=== PATIENT | female | born 2000 | race Caucasian/White ===

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

== ENCOUNTER 2020-04-29 12:45 | Outpatient (CLI) | payer MEDICAID, SELFPAY ==
[2020-05-02 05:03] LABS: Patient Race White; SARS-CoV-2 RNA Undetected (Undetected); SARS-CoV-2 Specimen Source Nasopharynx
== END 2020-04-29 13:05 ==
PROVIDERS: PCP Nurse Practitioner Pediatrics; Visit Provider Pediatrics
DX: Z11.59 Encounter for screening for other viral diseases (principal)
CPT/HCPCS: U0003

== ENCOUNTER 2020-06-28 15:51 | Outpatient (REF) | payer MEDICAID, SELFPAY ==
[2020-07-05 09:46] LABS: COVID-19 RT-PCR UVMMC Result Negative (Negative)
== END 2020-06-28 16:11 ==
LOC: LBN 15:51
PROVIDERS: PCP Nurse Practitioner Pediatrics; Visit Provider Pediatrics
DX: Z11.59 Encounter for screening for other viral diseases (principal)
CPT/HCPCS: U0003

== ENCOUNTER 2020-11-08 09:24 | Outpatient (CLI) | payer MEDICAID, SELFPAY ==
[2020-11-08 09:44] LABS: Abs Immature Grans 0.02 10^3/uL (0.0-0.06); Absolute Basophil Count 0.04 10^3/uL (0.0-0.2); Absolute Lymphocyte Count 2.89 10^3/uL (1.2-3.4); Absolute Neutrophil Count 3.65 10^3/uL (1.2-6.7); Basophils % 0.6; Eosinophils % 1.4; HCT 40.6 % (36.0-46.0); HGB 13.7 g/dL (11.2-15.7); Immature Grans % 0.3; Lymphocytes % 40.1; MCH 29.3 pg (27.0-33.0); MCHC 33.7 % (32.0-36.0); MCV 86.9 fL (80-95); MPV 11.2 fL (8.0-11.0); Monocytes % 6.9; Neutrophils % 50.7; Nucleated RBC 0 %; Platelet Count 202 10^3/uL (130-400); RBC 4.67 10^6/uL (3.93-5.22); RDW 11.3 % (11.7-14.6); RDW-SD 36.1 fL
[2020-11-08 11:04] LABS: ALT 18 U/L (14-59); AST < 5 U/L (15-37); Albumin 4.3 g/dL (3.4-5.0); Alkaline Phosphatase 86 U/L (46-116); Anion Gap 9.1 mmol/L (3-11); BUN 10 mg/dL (7-18); Bilirubin, Total 0.2 mg/dL (0.2-1.0); CO2 26.9 mmol/L (21.0-32.0); CREATININE 0.6 mg/dL (0.55-1.02); Calcium 9.6 mg/dL (8.5-10.1); Chloride 107 mmol/L (98-107); Glucose 90 mg/dL (74-106); Potassium 3.9 mmol/L (3.5-5.1); Sodium 143 mmol/L (136-145)
== END 2020-11-08 09:25 | disposition home or self-care (01) ==
LOC: LBO 09:27
PROVIDERS: PCP Nurse Practitioner Pediatrics; Visit Provider Nurse Practitioner Family
DX: R31.9 Hematuria, unspecified (principal); M54.5 Low back pain
CPT/HCPCS: 36415; 80053; 85025

== ENCOUNTER 2020-11-08 13:56 | Outpatient (REF) | payer MEDICAID, SELFPAY ==
[2020-11-08 15:56] LABS: Epithelial Cells Many HPF (Negative)
[2020-11-08 15:57] LABS: C & S Indicated? No; Crystals Many Amorphous HPF (Negative)
== END 2020-11-08 13:57 | disposition home or self-care (01) ==
LOC: LBN 13:56
PROVIDERS: PCP Nurse Practitioner Pediatrics; Visit Provider Nurse Practitioner Family
DX: R31.9 Hematuria, unspecified (principal)
CPT/HCPCS: 81015

== ENCOUNTER 2020-11-08 14:29 | Outpatient (CLI) | payer MEDICAID, SELFPAY ==
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
== END 2020-11-08 14:49 ==
PROVIDERS: PCP Nurse Practitioner Pediatrics; Visit Provider Nurse Practitioner Family
DX: R10.32 Left lower quadrant pain (principal); R31.9 Hematuria, unspecified
CPT/HCPCS: 76770

== ENCOUNTER 2020-11-18 12:03 | Outpatient (REF) | payer MEDICAID, SELFPAY ==
[2020-11-18 12:35] LABS: Bilirubin Negative (Negative); Blood Moderate (Negative); Clarity Cloudy (Clear); Glucose Negative (Negative); Ketones Negative (Negative); Leukocyte Esterase Negative (Negative); Nitrite Negative (Negative); Specific Gravity >= 1.030 (1.005-1.025); Urobilinogen 0.2 EU/dL (Up TO 0.2); pH 5.5 (5-8)
[2020-11-18 12:45] LABS: Bacteria Many HPF (Negative); C & S Indicated? Yes; Casts Negative LPF (Negative); Crystals Negative HPF (Negative); Epithelial Cells Few HPF (Negative); Mucus Trace (Negative); Other Cells Negative (Negative); WBC 0-2 HPF (0-5)
== END 2020-11-18 12:04 | disposition home or self-care (01) ==
LOC: LBN 12:03
PROVIDERS: PCP Nurse Practitioner Family; Visit Provider Nurse Practitioner Family
DX: R31.9 Hematuria, unspecified (principal)
CPT/HCPCS: 81003; 81015; 87086

== ENCOUNTER 2020-12-05 01:23 | Outpatient (CLI) | payer MEDICAID, SELFPAY ==
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
[2020-12-05] MEDS: Normal Saline - Diluent 50 ML VIAL IV ×2 (10:38)
[2020-12-05] MEDS: Omnipaque 350 MG/ML 100 ML BTL IJ (10:39)
== END 2020-12-05 01:43 ==
PROVIDERS: Visit Provider Urology
DX: M54.5 Low back pain (principal); R31.9 Hematuria, unspecified; V89.2XXA Person injured in unspecified motor-vehicle accident, traffic, initial encounter
CPT/HCPCS: 74178; J3490

== ENCOUNTER 2020-12-28 22:14 | Outpatient (REF) | payer MEDICAID, SELFPAY ==
[2020-12-29 15:29] LABS: Chlamydia Result Negative (Negative); GC Result Negative (Negative)
== END 2020-12-28 22:15 | disposition home or self-care (01) ==
LOC: LBN 22:14
PROVIDERS: Visit Provider Nurse Practitioner Women's Health
DX: N76.0 Acute vaginitis (principal); Z11.3 Encounter for screening for infections with a predominantly sexual mode of transmission
CPT/HCPCS: 87491; 87591; 87480; 87510; 87660

== ENCOUNTER 2021-02-16 12:27 | Outpatient (CLI) | payer MEDICAID, SELFPAY ==
--- NOTE | 2021-02-16 12:15 | RT.EKG_ITS ---
APPROVED REPORT Exam: Resting ECG Reason for Exam: chest tightness Patient Location: O HR:89 bpm ECG Measurements Heart Rate 89 AXIS ND 116 P -5 QRSd 74 QRS 69 QT 349 T 41 QTc 424 Conclusion Sinus rhythm...normal P axis, V-rate 60- 99
== END 2021-02-16 12:28 | disposition home or self-care (01) ==
LOC: DI.CM 12:28
PROVIDERS: Visit Provider Physician Assistant
DX: R07.89 Other chest pain (principal)
CPT/HCPCS: 93010

== ENCOUNTER 2021-02-16 14:47 | Outpatient (CLI) | payer MEDICAID, SELFPAY ==
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
== END 2021-02-16 15:07 ==
PROVIDERS: Visit Provider Physician Assistant
DX: R06.02 Shortness of breath (principal); R09.1 Pleurisy
CPT/HCPCS: 71046

== ENCOUNTER 2021-02-16 21:36 | Outpatient (REF) | payer MEDICAID, SELFPAY ==
[2021-02-16 22:38] LABS: D-Dimer 91 ng/mlFEU (<500)
== END 2021-02-16 21:37 | disposition home or self-care (01) ==
LOC: LBN 21:36
PROVIDERS: Visit Provider Physician Assistant
DX: R06.02 Shortness of breath (principal)
CPT/HCPCS: 85379

== ENCOUNTER 2021-07-20 11:09 | Outpatient (CLI) | payer MEDICAID, SELFPAY ==
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
== END 2021-07-20 11:29 ==
DX: M79.672 Pain in left foot (principal)
CPT/HCPCS: 73630

== ENCOUNTER 2021-09-28 02:47 | Outpatient (CLI) | payer MEDICAID, SELFPAY ==
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
== END 2021-09-28 03:07 ==
PROVIDERS: Visit Provider Student in an Organized Health Care Education/Training Program
DX: M79.672 Pain in left foot (principal); M65.871 Other synovitis and tenosynovitis, right ankle and foot; Q66.89 Other specified congenital deformities of feet; M25.572 Pain in left ankle and joints of left foot
CPT/HCPCS: 73718

== ENCOUNTER 2022-01-25 14:58 | Outpatient (REF) | payer MEDICAID, SELFPAY ==
--- NOTE | 2022-01-25 13:00 | PAPFT_PTH ---
PATIENT: Maria Isabel Hurd LOC: [facility] U#:[id number] AGE/SX: 21/F ROOM: RE01/25/[address]: MATI Land : 2000 BED: DIS: 01/25/2022 SPEC #: [id number] RECD: 01/25/22 17:53 STATUS: PRADIP SHETH #: [id number] ALFREDITO: 01/25/22 13:[address]: Rosanne Carney DEPT: [facility] Cytology RECD BY: Makeda Wilson ENTERED: 01/25/22 17:53 SP TYPE: PAPFT GABI DR: Roxann Booth APRN Tissues: 1 - CX/ENDOCX FOR PAP SMEARS Procedures: PAP THIN PREP/[facility] Screening Comments: [id number]
== END 2022-01-25 14:59 | disposition home or self-care (01) ==
LOC: LBN 14:58
PROVIDERS: Visit Provider Nurse Practitioner Family
DX: Z12.4 Encounter for screening for malignant neoplasm of cervix (principal)
CPT/HCPCS: 88142

== ENCOUNTER 2022-03-14 15:01 | Outpatient (REF) | payer MEDICAID, SELFPAY ==
[2022-03-14 14:44] LABS: Bilirubin Negative (Negative); Blood Small (Negative); Clarity Sl Cloudy (Clear); Glucose Negative (Negative); Ketones Negative (Negative); Leukocyte Esterase Trace (Negative); Nitrite Negative (Negative); Specific Gravity 1.025 (1.005-1.025); Urobilinogen 0.2 EU/dL (Up TO 0.2)
[2022-03-14 14:53] LABS: Bacteria Few HPF (Negative); Casts Negative LPF (Negative); Crystals Negative HPF (Negative); Epithelial Cells Many HPF (Negative); Mucus Negative (Negative); WBC 0-2 HPF (0-5)
[2022-03-14 14:54] LABS: C & S Indicated? No/Sq. Contamination
== END 2022-03-14 15:02 | disposition home or self-care (01) ==
LOC: LBN 15:01
PROVIDERS: Visit Provider Nurse Practitioner Gerontology
DX: R31.9 Hematuria, unspecified (principal)
CPT/HCPCS: 81003; 81015

== ENCOUNTER 2022-05-15 17:09 | Outpatient (REF) | payer MEDICAID, SELFPAY ==
[2022-05-17 23:28] LABS: Chlamydia Result Negative (Negative); GC Result Negative (Negative)
== END 2022-05-15 17:10 | disposition home or self-care (01) ==
LOC: LBN 17:09
PROVIDERS: PCP Nurse Practitioner Family; Visit Provider Nurse Practitioner Women's Health
DX: Z11.3 Encounter for screening for infections with a predominantly sexual mode of transmission (principal); N93.0 Postcoital and contact bleeding
CPT/HCPCS: 87491; 87591; 87480; 87510; 87660

== ENCOUNTER 2022-06-21 11:22 | Outpatient (RCR) | payer MEDICAID, SELFPAY ==
--- NOTE | 2022-06-21 11:30 | HOLTER_ITS ---
APPROVED REPORT Conclusion This is a 48-hour Holter monitor ordered for tachycardia Rhythm throughout was sinus with an average heart rate of 87. Minimum was 58, maximum 151 There were very rare isolated atrial and ventricular ectopic beats There is no atrial fibrillation, no SVT, no high-grade AV block, no pauses greater than 3 seconds
== END 2022-07-14 23:59 | disposition home or self-care (01) ==
LOC: CARDOPNVT 11:22
PROVIDERS: PCP Nurse Practitioner Family; Visit Provider Family Medicine
DX: R00.0 Tachycardia, unspecified (principal)
CPT/HCPCS: 93225; 93226

== ENCOUNTER 2022-07-11 02:34 | Outpatient (CLI) | payer MEDICAID, SELFPAY ==
[2022-07-11 12:40] LABS: Anion Gap 8.1 mmol/L (3-11); BUN 13 mg/dL (7-18); CO2 28.9 mmol/L (21.0-32.0); CREATININE 0.6 mg/dL (0.55-1.02); Calcium 9.5 mg/dL (8.5-10.1); Calculated LDL 88 mg/dL (<100); Chloride 105 mmol/L (98-107); Cholesterol 173 mg/dL (<200); Estimated GFR 130.88 (mL/min/1.73m2); Glucose 121 mg/dL (74-106); HDL Cholesterol 70 mg/dL (40-60); Potassium 3.6 mmol/L (3.5-5.1); Sodium 142 mmol/L (136-145); TSH (W/Ref FT4) 1.13 uIU/mL (0.36-3.74); Triglyceride 78 mg/dL (<150)
== END 2022-07-11 02:35 | disposition home or self-care (01) ==
PROVIDERS: PCP Nurse Practitioner Family; Visit Provider Nurse Practitioner Family
DX: G90.A Postural orthostatic tachycardia syndrome [POTS] (principal); F41.8 Other specified anxiety disorders; R79.89 Other specified abnormal findings of blood chemistry
CPT/HCPCS: 36415; 80048; 80061; 84443

== ENCOUNTER 2022-08-10 11:56 | Outpatient (REF) | payer MEDICAID, SELFPAY | END 2022-08-10 11:57 | disposition home or self-care (01) | LOC: LBN 11:56 | PROVIDERS: PCP Nurse Practitioner Family; Visit Provider Physician Assistant | DX: N39.0 Urinary tract infection, site not specified (principal) | CPT/HCPCS: 87086 ==

== ENCOUNTER 2022-08-10 12:10 | Emergency (ER) | payer MEDICAID, SELFPAY ==
[2022-08-10 12:21] VITALS: BP 121/74; PULSE 88; RESP 18; TEMP 36.6; O2SAT 99
[2022-08-10 13:52] LABS: Bilirubin Negative (Negative); Blood Small (Negative); Clarity Clear (Clear); Glucose Negative (Negative); Ketones Negative (Negative); Leukocyte Esterase Negative (Negative); Nitrite Negative (Negative); Specific Gravity >= 1.030 (1.005-1.025); Urobilinogen 0.2 EU/dL (Up TO 0.2); pH 5.5 (5-8)
[2022-08-10 14:02] LABS: Bacteria Negative HPF (Negative); C & S Indicated? No; Casts Negative LPF (Negative); Crystals Negative HPF (Negative); Epithelial Cells Few HPF (Negative); Mucus Heavy (Negative); WBC Negative HPF (0-5)
[2022-08-10] MEDS: Lactated Ringers 1,000 ML 125 ML IV (14:12)
[2022-08-10 14:15] LABS: Abs Immature Grans 0.02 10^3/uL (0.0-0.06); Absolute Basophil Count 0.04 10^3/uL (0.0-0.2); Absolute Eosinophil Count 0.12 10^3/uL (0.0-0.7); Absolute Lymphocyte Count 2.35 10^3/uL (1.2-3.4); Absolute Monocyte Count 0.56 10^3/uL (0.1-0.8); Absolute Neutrophil Count 5.93 10^3/uL (1.2-6.7); Basophils % 0.4; Eosinophils % 1.3; HCT 41.8 % (36.0-46.0); HGB 14.1 g/dL (11.2-15.7); Immature Grans % 0.2; Lymphocytes % 26.1; MCH 29.3 pg (27.0-33.0); MCHC 33.7 % (32.0-36.0); MCV 87 fL (80-95); MPV 11.5 fL (8.0-11.0); Monocytes % 6.2; Neutrophils % 65.8; Platelet Count 200 10^3/uL (130-400); RBC 4.82 10^6/uL (3.93-5.22); RDW 11.7 % (11.7-14.6); RDW-SD 37.1 fL; WBC 9.02 10^3/uL (4.4-10.8)
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
[2022-08-10 14:26] LABS: Lipase 34 U/L (73-393)
[2022-08-10] MEDS: Omnipaque 350 MG/ML 100 ML BTL IJ (14:43)
[2022-08-10] MEDS: Normal Saline Flush 10 ML SYR IVP (14:44)
[2022-08-10] MEDS: Normal Saline - Diluent 50 ML VIAL IV (14:44)
[2022-08-10 14:48] LABS: ALT 21 U/L (14-59); AST 15 U/L (15-37); Albumin 4.3 g/dL (3.4-5.0); Alkaline Phosphatase 90 U/L (46-116); Anion Gap 8.6 mmol/L (3-11); BUN 12 mg/dL (7-18); Bilirubin, Total 0.4 mg/dL (0.2-1.0); CO2 27.4 mmol/L (21.0-32.0); CREATININE 0.6 mg/dL (0.55-1.02); Calcium 9.4 mg/dL (8.5-10.1); Chloride 107 mmol/L (98-107); Estimated GFR 130.88 (mL/min/1.73m2); Glucose 86 mg/dL (74-106); Potassium 3.6 mmol/L (3.5-5.1); Sodium 143 mmol/L (136-145); Total Protein 7.4 g/dL (6.4-8.2)
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
--- NOTE | 2022-08-10 15:55 | ED.GENADUL_ITS ---
Discharge Plan Disposition Condition: Stable Discharge Details Chief Complaint: Abd Prob Clinical Impression: Abdominal pain Primary Care Provider: Asya Espitia ED Provider: Chaparro Guerrero Home Meds and New Rx's Prescriptions: No Action norgestimate-ethinyl estradiol [Sprintec (28)] 0.25-35 mg-mcg tablet 1 tab PO DAILY Qty: 84 4RF Hair,Skin and Nails Tablet 1 tab PO DAILY propranolol 20 mg tablet 20 mg PO BID Qty: 180 3RF Discharge Instructions Instructions: Abdominal Pain (ED) Additional Instructions: Please take ibuprofen over the counter. Take 600mg by mouth every 6 hours as needed for pain. Please take acetaminophen (tylenol) - 650mg every 6 hours by mouth as needed for pain. Please follow-up with your primary care physician and supervisor cell operation. Return to the emerge department immediately for any worsening or new concerning symptoms. Referrals: Asya Espitia, [facility] [Primary Care Provider] - Medical Decision Making 1600 -- 21-year-old female right lower quad abdominal pain for the past 2 days. Patient is tender in her right lower abdomen. Labs reviewed and nondiagnostic. CT of the abdomen pelvis to assess for acute surgical pathology including acute appendicitis was interpreted by radiology:1. Normal appendix. 2. Small amount of fluid in the pelvis particularly on the right.? This may be physiologic. 3. Findings were discussed with Dr. Guerrero at 2:55 p.m. on 08/10/2022. Free fluid and location and nature of pain, consider ovarian torsion. Plan to obtain ultrasound of the pelvis. Offered analgesic and patient declined. Lab Data Lab results reviewed: Yes I reviewed the patient's lab results. Labs: Laboratory Tests Range/Units 08/10/22 08/10/22 08/10/22 13:22 13:48 13:48 WBC (4.4-10.8) 10^3/uL RBC (3.93-5.22) 10^6/uL Hgb (11.2-15.7) g/dL Hct (36.0-46.0) % MCV (80-95) fL MCH (27.0-33.0) pg MCHC (32.0-36.0) % RDW (11.7-14.6) % Plt Count (130-400) 10^3/uL MPV (8.0-11.0) fL Immature Gran % Neutrophils % Lymphocytes % Monocytes % Eosinophils % Basophils % Nucleated RBC % (0.0-0.3) % Absolute Neutrophils (1.2-6.7) 10^3/uL Absolute Lymphocytes (1.2-3.4) 10^3/uL Absolute Monocytes (0.1-0.8) 10^3/uL Absolute Eosinophils (0.0-0.7) 10^3/uL Absolute Basophils (0.0-0.2) 10^3/uL Sodium (136-145) mmol/L 143 Potassium (3.5-5.1) mmol/L 3.6 Chloride (98-107) mmol/L 107 Carbon Dioxide (21.0-32.0) mmol/L 27.4 Anion Gap (3-11) mmol/L 8.6 BUN (7-18) mg/dL 12 Creatinine (0.55-1.02) mg/dL 0.6 Est GFR (CKD-EPI 2020) (mL/min/1.73m2) 130.88 Glucose (74-106) mg/dL 86 Calcium (8.5-10.1) mg/dL 9.4 Total Bilirubin (0.2-1.0) mg/dL 0.4 AST (15-37) U/L 15 ALT (14-59) U/L 21 Alkaline Phosphatase (46-116) U/L 90 Total Protein (6.4-8.2) g/dL 7.4 Albumin (3.4-5.0) g/dL 4.3 Lipase (73-393) U/L 34 Urine Color (Yellow) Yellow Urine Clarity (Clear) Clear Urine pH (5-8) 5.5 Ur Specific [place] (1.005-1.025) >= 1.030 H Urine Protein (Negative) mg/dL Negative Urine Ketones (Negative) mg/dL Negative Urine Blood (Negative) Small H Urine Nitrite (Negative) Negative Urine Bilirubin (Negative) Negative Urine Urobilinogen (Up TO 0.2) EU/dL 0.2 Ur Leukocyte Esterase (Negative) Negative Urine RBC (0-2) HPF 10-20 H Urine WBC (0-5) HPF Negative Ur Epithelial Cells (Negative) HPF Few Urine Crystals (Negative) HPF Negative Urine Bacteria (Negative) HPF Negative Urine Casts (Negative) LPF Negative Urine Mucus (Negative) Heavy Ur Culture Indicated? No Urine Glucose (Negative) mg/dL Negative Range/Units 08/10/22 13:48 WBC (4.4-10.8) 10^3/uL 9.02 RBC (3.93-5.22) 10^6/uL 4.82 Hgb (11.2-15.7) g/dL 14.1 Hct (36.0-46.0) % 41.8 MCV (80-95) fL 87 MCH (27.0-33.0) pg 29.3 MCHC (32.0-36.0) % 33.7 RDW (11.7-14.6) % 11.7 Plt Count (130-400) 10^3/uL 200 MPV (8.0-11.0) fL 11.5 H Immature Gran % 0.2 Neutrophils % 65.8 Lymphocytes % 26.1 Monocytes % 6.2 Eosinophils % 1.3 Basophils % 0.4 Nucleated RBC % (0.0-0.3) % 0.0 Absolute Neutrophils (1.2-6.7) 10^3/uL 5.93 Absolute Lymphocytes (1.2-3.4) 10^3/uL 2.35 Absolute Monocytes (0.1-0.8) 10^3/uL 0.56 Absolute Eosinophils (0.0-0.7) 10^3/uL 0.12 Absolute Basophils (0.0-0.2) 10^3/uL 0.04 Sodium (136-145) mmol/L Potassium (3.5-5.1) mmol/L Chloride (98-107) mmol/L Carbon Dioxide (21.0-32.0) mmol/L Anion Gap (3-11) mmol/L BUN (7-18) mg/dL Creatinine (0.55-1.02) mg/dL Est GFR (CKD-EPI 2020) (mL/min/1.73m2) Glucose (74-106) mg/dL Calcium (8.5-10.1) mg/dL Total Bilirubin (0.2-1.0) mg/dL AST (15-37) U/L ALT (14-59) U/L Alkaline Phosphatase (46-116) U/L Total Protein (6.4-8.2) g/dL Albumin (3.4-5.0) g/dL Lipase (73-393) U/L Urine Color (Yellow) Urine Clarity (Clear) Urine pH (5-8) Ur Specific [place] (1.005-1.025) Urine Protein (Negative) mg/dL Urine Ketones (Negative) mg/dL Urine Blood (Negative) Urine Nitrite (Negative) Urine Bilirubin (Negative) Urine Urobilinogen (Up TO 0.2) EU/dL Ur Leukocyte Esterase (Negative) Urine RBC (0-2) HPF Urine WBC (0-5) HPF Ur Epithelial Cells (Negative) HPF Urine Crystals (Negative) HPF Urine Bacteria (Negative) HPF Urine Casts (Negative) LPF Urine Mucus (Negative) Ur Culture Indicated? Urine Glucose (Negative) mg/dL HPI General Mode of arrival: ambulatory . Date/Time Provider Initiated Documentation: 08/10/22 13:15 . Limitations to Documentation: no limitations . Information obtained by: patient . HPI Narrative: 21-year-old female that is with chief complaint of abdominal pain. Patient notes right lower quad abdominal pain for the past 2 days. She denies nausea, vomiting diarrhea. No fever. Patient notes she recently had menstrual cycle that was a little bit heavy compared to normal. Patient was seen at [facility] and sent for further evaluation. She does have a history of chronic microscopic hematuria. Related Data Home Medications Medication Instructions Recorded Confirmed norgestimate 0.25 mg-ethinyl 1 tab PO DAILY #84 tabs 02/20/22 08/10/22 estradiol 35 mcg tablet (Sprintec (28)) multivitamin with minerals 1 tab PO DAILY 05/15/22 08/10/22 (Hair,Skin and Nails tablet) propranolol 20 mg tablet 20 mg PO BID #180 tabs 08/03/22 08/10/22 Previous Rx's Medication Instructions Recorded norgestimate 0.25 mg-ethinyl 1 tab PO DAILY #84 tabs 02/20/22 estradiol 35 mcg tablet (Sprintec (28)) propranolol 20 mg tablet 20 mg PO BID #180 tabs 08/03/22 Allergies Allergy/AdvReac Type Severity Reaction Status Date / Time rizatriptan benzoate AdvReac Mild MEDICATION Verified 08/10/22 13:35 [From Maxalt] MADE PT'S NECK HURT. General Stated Complaint: Abd Prob ASHLEY: 3 Review of Systems All systems reviewed & are unremarkable except as noted in HPI and below Constitutional Constitutional: Denies fever(s) Gastrointestinal Gastrointestinal: Reports abdominal pain PFSH All Active Problems Abdominal pain (Acute) Contraceptive surveillance (Acute) Postural orthostatic tachycardia syndrome (Acute) Migraine (Chronic) Anxiety (Chronic) did not tolerate prozac - mood swings and panic attacks Smoker (Acute) 02/2021 - 5 per day, counseled Medical History Infectious mononucleosis Surgical History S/P tonsillectomy Status post left foot surgery Excision of accessory navicular bone Family History Mother Cervical cancer Migraine Brother Migraine Grandmother Migraine Father No problems noted. Sister Substance abuse Sister No problems noted. Brother Alcohol abuse Substance abuse Brother No problems noted. Maternal Grandfather Cancer Paternal Grandfather No problems noted. Maternal Grandmother , 70's Lung cancer Brain cancer Paternal Grandmother Asthma Social History Smoking/Tobacco Use Status: Current every day Tobacco Type: e-cigarettes Tobacco: How many years used: 2 Quit status: considering quitting Second Hand Exposure: Yes Counseling given: provider counseling Smoking risk assessment performed?: Yes Alcohol Intake: current Alcohol Intake frequency: holidays/special occasions only Alcohol type: beer Drug use: Occasionally Substance use type: does not use and marijuana Caregiver/Support person: No Household members: significant other Housing: apartment current occupation: [employer] Pets and animals: Yes Pets and animals: dog(s) Do you think of yourself as: straight/heterosexual Current gender identity: female What is your relationship status?: living with partner How often do you talk on the phone with friends or family?: three or more times per week How often do you get together with friends or relatives?: three or more times per week How often do you attend evangelical or baptism services?: decline to answer Do you belong to any clubs or organized social groups?: no Panel score (0-1 are the most socially isolated patients): 2 Lizet/Rastafarian: No preference Agree to transfusion: No Seatbelt use: always Helmet use: Yes Helmet use: always Drive intox or ride w/intox buggy driver: No Do you feel safe at home: Yes Do you feel safe in your relationship?: Yes Additional Social history: lives w/ mom- she does some cleaning / housework 2 younger brothers and a younger sister Female Reproductive History Menstrual control method: progesterone injection History History 0 Para Hx # Term Pregnancies Multiple births Hx # Pregnancies Ectopic pregnancies AB induced Hx Number of Living Children AB spontaneous Exam Const General: cooperative and no acute distress HENMT Mouth: moist mucous membranes Eyes Conjunctivae: normal conjunctivae Neck Neck: trachea midline and supple Resp Auscultation: clear to auscultation bilaterally Cardio Rate: regular rate and not tachycardic Rhythm: regular rhythm GI Palpation: soft, not firm, no guarding, no masses, not rigid and tender in the RLQ Skin General skin exam: no rashes or lesions noted Neuro General: patient alert, patient awake and tone normal Extrem General: no edema Psych Appearance: grossly normal Mental Status: mental status grossly normal Course Vital Signs Vital signs: Vital Signs Temperature 36.6 C 08/10/22 12:21 Pulse 88 08/10/22 12:21 Respiratory Rate 18 08/10/22 12:21 Blood Pressure 121/74 08/10/22 12:21 Pulse Oximetry 99 08/10/22 12:21 Temperature 36.6 C 08/10/22 12:21 Temperature Source Skin 08/10/22 12:21 Pulse 88 08/10/22 12:21 Respiratory Rate 18 08/10/22 12:21 Respiratory Effort 08/10/22 12:28 Blood Pressure 121/74 08/10/22 12:21 Blood Pressure Position Sitting 08/10/22 12:21 Pulse Oximetry 99 08/10/22 12:21 Oxygen Delivery Method Room Air 08/10/22 12:21 Oxygen Flow Rate 0 08/10/22 12:21 Pain Level 4 08/10/22 12:21 Lab/Test Results Lab/Test Results: Laboratory Tests Range/Units 08/10/22 08/10/22 08/10/22 13:22 13:48 13:48 WBC (4.4-10.8) 10^3/uL RBC (3.93-5.22) 10^6/uL Hgb (11.2-15.7) g/dL Hct (36.0-46.0) % MCV (80-95) fL MCH (27.0-33.0) pg MCHC (32.0-36.0) % RDW (11.7-14.6) % Plt Count (130-400) 10^3/uL MPV (8.0-11.0) fL Immature Gran % Neutrophils % Lymphocytes % Monocytes % Eosinophils % Basophils % Nucleated RBC % (0.0-0.3) % Absolute Neutrophils (1.2-6.7) 10^3/uL Absolute Lymphocytes (1.2-3.4) 10^3/uL Absolute Monocytes (0.1-0.8) 10^3/uL Absolute Eosinophils (0.0-0.7) 10^3/uL Absolute Basophils (0.0-0.2) 10^3/uL Sodium (136-145) mmol/L 143 Potassium (3.5-5.1) mmol/L 3.6 Chloride (98-107) mmol/L 107 Carbon Dioxide (21.0-32.0) mmol/L 27.4 Anion Gap (3-11) mmol/L 8.6 BUN (7-18) mg/dL 12 Creatinine (0.55-1.02) mg/dL 0.6 Est GFR (CKD-EPI 2020) (mL/min/1.73m2) 130.88 Glucose (74-106) mg/dL 86 Calcium (8.5-10.1) mg/dL 9.4 Total Bilirubin (0.2-1.0) mg/dL 0.4 AST (15-37) U/L 15 ALT (14-59) U/L 21 Alkaline Phosphatase (46-116) U/L 90 Total Protein (6.4-8.2) g/dL 7.4 Albumin (3.4-5.0) g/dL 4.3 Lipase (73-393) U/L 34 Urine Color (Yellow) Yellow Urine Clarity (Clear) Clear Urine pH (5-8) 5.5 Ur Specific [place] (1.005-1.025) >= 1.030 H Urine Protein (Negative) mg/dL Negative Urine Ketones (Negative) mg/dL Negative Urine Blood (Negative) Small H Urine Nitrite (Negative) Negative Urine Bilirubin (Negative) Negative Urine Urobilinogen (Up TO 0.2) EU/dL 0.2 Ur Leukocyte Esterase (Negative) Negative Urine RBC (0-2) HPF 10-20 H Urine WBC (0-5) HPF Negative Ur Epithelial Cells (Negative) HPF Few Urine Crystals (Negative) HPF Negative Urine Bacteria (Negative) HPF Negative Urine Casts (Negative) LPF Negative Urine Mucus (Negative) Heavy Ur Culture Indicated? No Urine Glucose (Negative) mg/dL Negative Range/Units 08/10/22 13:48 WBC (4.4-10.8) 10^3/uL 9.02 RBC (3.93-5.22) 10^6/uL 4.82 Hgb (11.2-15.7) g/dL 14.1 Hct (36.0-46.0) % 41.8 MCV (80-95) fL 87 MCH (27.0-33.0) pg 29.3 MCHC (32.0-36.0) % 33.7 RDW (11.7-14.6) % 11.7 Plt Count (130-400) 10^3/uL 200 MPV (8.0-11.0) fL 11.5 H Immature Gran % 0.2 Neutrophils % 65.8 Lymphocytes % 26.1 Monocytes % 6.2 Eosinophils % 1.3 Basophils % 0.4 Nucleated RBC % (0.0-0.3) % 0.0 Absolute Neutrophils (1.2-6.7) 10^3/uL 5.93 Absolute Lymphocytes (1.2-3.4) 10^3/uL 2.35 Absolute Monocytes (0.1-0.8) 10^3/uL 0.56 Absolute Eosinophils (0.0-0.7) 10^3/uL 0.12 Absolute Basophils (0.0-0.2) 10^3/uL 0.04 Sodium (136-145) mmol/L Potassium (3.5-5.1) mmol/L Chloride (98-107) mmol/L Carbon Dioxide (21.0-32.0) mmol/L Anion Gap (3-11) mmol/L BUN (7-18) mg/dL Creatinine (0.55-1.02) mg/dL Est GFR (CKD-EPI 2020) (mL/min/1.73m2) Glucose (74-106) mg/dL Calcium (8.5-10.1) mg/dL Total Bilirubin (0.2-1.0) mg/dL AST (15-37) U/L ALT (14-59) U/L Alkaline Phosphatase (46-116) U/L Total Protein (6.4-8.2) g/dL Albumin (3.4-5.0) g/dL Lipase (73-393) U/L Urine Color (Yellow) Urine Clarity (Clear) Urine pH (5-8) Ur Specific [place] (1.005-1.025) Urine Protein (Negative) mg/dL Urine Ketones (Negative) mg/dL Urine Blood (Negative) Urine Nitrite (Negative) Urine Bilirubin (Negative) Urine Urobilinogen (Up TO 0.2) EU/dL Ur Leukocyte Esterase (Negative) Urine RBC (0-2) HPF Urine WBC (0-5) HPF Ur Epithelial Cells (Negative) HPF Urine Crystals (Negative) HPF Urine Bacteria (Negative) HPF Urine Casts (Negative) LPF Urine Mucus (Negative) Ur Culture Indicated? Urine Glucose (Negative) mg/dL POC- Test(urine) Negative PAWSS Have you Been Recently Intoxicated or Drunk Within the Last 30 days?: No Have you Ever Experienced Previous Episodes of Alcohol Withdrawal?: No Have you ever Experienced Withdrawal Seizures?: No Have you ever Experienced Delirium Tremens(DT)s?: No Have you ever undergone Alcohol Rehabilitation Treatment (i.e, inpt ot outpatient treatment programs)?: No Have you ever Experienced Blackouts?: No Have you ever Combined Alcohol with other Downers within the last 90 days?: No Have you ever Combined Alcohol with any other Substance of Abuse during the last 90 days?: No Positive Blood Alcohol level on Presentation? [PCS.BAL]: No Evidence of Increased Autonomic Activity (i.e. HR>120, tremor, sweating, agitation, nausea)?: No Result: 0
[2022-08-10] MEDS: Acetaminophen 500 MG TAB 1000 MG PO (16:53)
[2022-08-10 16:57] VITALS: BP 107/58; PULSE 73; RESP 19; TEMP 36.7; O2SAT 100
--- NOTE | 2022-08-10 16:58 | ED.PROG_ITS ---
Date of service: 08/10/22 Time of Service: 16:58 Medical Decision Making Case was signed out to me to follow-up on radiology read of ultrasound. I was contacted by Dr. Cotter, he sees no acute process, no evidence of torsion. Patient feels well. She feels comfortable going home. Symptoms inconsistent with an acute surgical abdomen on reexamination. Patient appropriate for discharge. There is a small amount of free fluid. Recommend continued NSAIDs at home. Discussed red flags which to return. I have extensively reviewed the treatment plan and discharge instructions with the patient and their family. I have addressed all patient concerns at this time. The patient and family was made aware of what symptoms to monitor for that would warrant a return to the emergency department. Discussed the plan with the patient and family, they demonstrate verbal understanding and agreement with our assessment and plan at this time. The documentation in this chart was dictated using [employer] dictation software. Please excuse any dictation errors. Sign Out Sign Out Data: Sign Out Comment: Follow-up ultrasound of the pelvis to rule out torsion. Last updated by Chaparro Guerrero MD at 08/10/22 16:24 Discharge Plan Disposition Patient Disposition: Home Condition: Good Discharge Details Clinical Impression: Abdominal pain Primary Care Provider: Asya Espitia ED Provider: Chaparro Guerrero Home Meds and New Rx's Prescriptions: No Action norgestimate-ethinyl estradiol [Sprintec (28)] 0.25-35 mg-mcg tablet 1 tab PO DAILY Qty: 84 4RF Hair,Skin and Nails Tablet 1 tab PO DAILY propranolol 20 mg tablet 20 mg PO BID Qty: 180 3RF Discharge Instructions Instructions: Abdominal Pain (ED) Additional Instructions: At this time your CAT scan and ultrasound shows no evidence of appendicitis, or other significant abdominal abnormality. If you notice any worsening of your symptoms, or any new symptoms such as vomiting, diarrhea, fever, chills, shortness of breath, chest pain, numbness, weakness, or fainting , please return immediately to the emergency department for reevaluation. Please follow up with your primary care provider as soon as possible for reassessment and reevaluation. As always, it was a pleasure participating in your medical care today. Please take ibuprofen over the counter. Take 600mg by mouth every 6 hours as needed for pain. Please take acetaminophen (tylenol) - 650mg every 6 hours by mouth as needed for pain. Please follow-up with your primary care physician and oil expeller. Return to the emerge department immediately for any worsening or new concerning symptoms. Referrals: Asya Espitia NP [Primary Care Provider] -
== END 2022-08-10 17:07 | disposition home or self-care (01) ==
PROVIDERS: Emergency Provider Student in an Organized Health Care Education/Training Program; PCP Nurse Practitioner Family
DX: R10.31 Right lower quadrant pain (principal); R10.813 Right lower quadrant abdominal tenderness
CPT/HCPCS: 80053; 81025; 83690; 96360; 96361; 99284; 74177; 76830; 76856; 81003; 81015; 85025; J3490

== ENCOUNTER 2022-08-16 15:47 | Outpatient (REF) | payer MEDICAID, SELFPAY ==
[2022-08-17 13:44] LABS: GC Result Negative (Negative)
[2022-08-17 14:53] LABS: Chlamydia Result Positive (Negative)
== END 2022-08-16 15:48 | disposition home or self-care (01) ==
LOC: LBN 15:47
PROVIDERS: PCP Nurse Practitioner Family; Visit Provider Nurse Practitioner Family
DX: R10.31 Right lower quadrant pain (principal)
CPT/HCPCS: 87491; 87591; 87480; 87510; 87660

== ENCOUNTER 2022-12-24 02:46 | Outpatient (CLI) | payer MEDICAID, SELFPAY ==
--- NOTE | 2022-12-24 14:49 | DI.US_ITS ---
APPROVED REPORT EXAM: Comprehensive 2D, Doppler, and color-flow Echocardiogram Patient Location: Out-Patient Aircraft Maintenance Technician: Destiney Rosales RDCS (AE) Indications: Tachycardia, Pre syncope, Orthostasis Other Information Study Quality: Adequate Conclusion Normal left ventricular wall thickness and chamber size. Ejection fraction is 60 to 65%. Wall motio n is normal Normal right ventricular size and systolic function Both atria are normal in size There is no structural or hemodynamically significant valvular disease Wall motion Left Ventricle The left ventricle is normal size. The left ventricular systolic function is normal. The left ventric ular ejection fraction is within the normal range. There is normal left ventricular wall thickness. T here is normal LV segmental wall motion. There is no ventricular septal defect visualized. LVEF is 60 -65%. Right Ventricle The right ventricle is normal size. The right ventricular systolic function is normal. The RVSP is 13 .5 mmHg. Atria The left atrium size is normal. The right atrium size is normal. The interatrial septum is intact wit h no evidence for an atrial septal defect. Aortic Valve The aortic valve is normal in structure. Aortic valve is trileaflet. There is no aortic valvular sten osis. No aortic regurgitation is present. Mitral Valve The mitral valve is normal in structure. No evidence of mitral valve stenosis. Trace mitral regurgita tion. Tricuspid Valve The tricuspid valve is normal in structure. There is no tricuspid valve stenosis. Trace tricuspid reg urgitation. Pulmonic Valve The pulmonary valve is normal in structure. There is no pulmonic valvular stenosis. There is no pulmo alexandra valvular regurgitation. Great Vessels The aortic root is normal in size. The ascending aorta is normal in size. Aortic arch is normal in ca liber. IVC is normal in size and collapses >50% with inspiration. Pericardium There is no pericardial effusion. 2D Dimensions IVSD d PLAX 0.81 cm F: 0.6-1.0 LV Vol A2C d MOD 89.3 mL LVPW d PLAX 0.82 cm F: 0.6 - 1.0 LV Vol A4C d MOD 79.0 mL LVID d PLAX 4.02 cm F: 3.8 - 5.2 LA vol/ BSA A2C s A-L 14.7 mL/m2 LVDs 2.70 cm F: 2.2 - 3.5 LA vol/ BSA A4C s A-L 10.6 mL/m2 Ao Root d 2.81 cm F: 2.7 - 3.3 LA Vol/ BSA Biplane s A-L 13.4 mL/m2 RA Area A4C 6.26 cm2 LA Area A4C s MOD 9.48 cm2 RA Vol/ BSA A4C s A-L 6.3 mL/m2 LA Area A2C s MOD 10.40 cm2 Ao Asc Diam d 3.03 cm F: 2.3 - 3.1 LV EF A4C MOD 60.0 % LV EF Teichholz 60.4 % LV EF A2C MOD 65.3 % LVEF (Hanna's) 62.30 % F: 54 - 74 LV EF Biplane MOD 62.3 % LV Volume 67.02 mL F: 46 - 106 SV 52.49 mL LV Volume Index 39.65 mL/m2 F: 29 - 61 SV Index 31.02 mL/m2 LV Vol Biplane MOD 84.3 mL FS 31.80 % M-Mode TAPSE 1.78 cm (M/F) >1.7 LV Diastology MV E' medial 0.131 (>0.07 m/s) E/A Ratio 1.9 LV E/e MED 6.40 (<14) MV E Vmax 0.84 (0.4-1.3 m/s) MV E' lateral 0.152 (>0.1 m/s) MV A Vmax 0.45 (0.4-1.3 m/s) LV E/e LAT 5.55 (<14) MV E/A Ratio 1.79 MV E/E' medial 6.44 MV E/E' lateral 5.56 Aortic Valve LVOT Area 3.04 cm2 AoV Area Vmax 2.60 cm2 LVOT Vmax 1.05 m/s AoV Area/ BSA (Vmax) 1.54 cm2/m2 LVOT Mean Harshil. 0.68 m/s MARI Mean Harshil. 2.28 cm2 LVOT Peak Grad 4.4 mmHg MARI Mean Harshil. Index 1.35 cm2/m2 LVOT Mean Grad 2.2 mmHg LVOT VTI 0.206 m LVOT Diam s 1.95 cm AoV Vmax 1.23 m/s Velocity Ratio 0.85 AoV Mean Harshil. 0.92 m/s AoV Peak Grad 6.1 mmHg LVOT SV 62.71 mL AoV Mean Grad 3.7 mmHg AoV VTI 0.230 m AoV Area VTI 2.72 cm2 AoV Area/ BSA (VTI) 1.61 cm/m2 Mitral Valve MV DT 200 (160-240 msec) MV PHT 58 msec MV Area PHT 3.79 cm2 MV VTI 0.248 m MV Area VTI 2.53 (4.0-6.0 cm2) Pulmonary Valve PV Vmax 1.03 (0.5-1.5 m/s) RVOT Peak Gr. 2.21 mmHg PV Peak Grad 4.3 mmHg RVOT Mean Gr. 1.15 mmHg PV Mean Grad 2.0 mmHg RVOT VTI 0.166 m PV VTI 0.183 m RVOT Vmax 0.74 m/s Tricuspid Valve TR Peak Grad 10.5 mmHg TR Vmax 1.62 m/s RA Pressure 3.00 mmHg RVSP (TR) 13.5 mmHg
== END 2022-12-24 03:06 ==
LOC: DI 02:48
PROVIDERS: PCP Nurse Practitioner
DX: R00.0 Tachycardia, unspecified (principal); R55 Syncope and collapse; I95.1 Orthostatic hypotension
CPT/HCPCS: 93306

== ENCOUNTER 2023-04-01 05:21 | Emergency (ER) | payer MEDICAID, SELFPAY ==
[2023-04-01 05:24] VITALS: BP 131/84; PULSE 99; RESP 16; TEMP 36.8; O2SAT 99
--- NOTE | 2023-04-01 05:30 | DI.RAD_ITS ---
Exam(s) XR FOOT RT COMPLETE EXAM: XR FOOT RT COMPLETE CLINICAL HISTORY: midfoot pain. TECHNIQUE: 2D digital imaging was performed. Three views. COMPARISON: CR XR FOOT LT COMPLETE from 07/20/2021 MR MR LOWER EXTREMITY LT WO from 09/28/2021 FINDINGS: BONES: No acute fracture is present. No bony destructive lesion is seen. JOINTS: No dislocation present. SOFT TISSUE: Normal. IMPRESSION: Unremarkable radiographs of the right foot. DATA REPOSITORY: RADIATION DOSE DELIVERED:
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
[2023-04-01] MEDS: Acetaminophen 325 MG TAB 650 MG PO (05:42)
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
== END 2023-04-01 07:00 | disposition home or self-care (01) ==
PROVIDERS: Emergency Provider Emergency Medicine; PCP Nurse Practitioner
DX: S90.31XA Contusion of right foot, initial encounter (principal); X58.XXXA Exposure to other specified factors, initial encounter
CPT/HCPCS: 99283; 73630

== ENCOUNTER 2023-04-09 15:35 | Outpatient (REF) | payer MEDICAID, SELFPAY ==
[2023-04-11 14:30] LABS: GC Result Negative (Negative)
[2023-04-11 14:37] LABS: Specimen Description ENDOCERVICAL
[2023-04-11 14:41] LABS: Chlamydia Result Positive (Negative)
== END 2023-04-09 15:36 | disposition home or self-care (01) ==
LOC: LBN 15:35
PROVIDERS: PCP Nurse Practitioner; Visit Provider Nurse Practitioner Women's Health
DX: Z11.3 Encounter for screening for infections with a predominantly sexual mode of transmission
CPT/HCPCS: 87491; 87591

== ENCOUNTER 2023-04-10 03:23 | Outpatient (CLI) | payer MEDICAID, SELFPAY ==
[2023-04-10 16:50] LABS: TSH (W/Ref FT4) 1.15 uIU/mL (0.36-3.74)
[2023-04-18 13:50] LABS: Testosterone, Free 0.96 ng/dL (<0.13-1.08); Testosterone, Total 40 ng/dL (8-60)
== END 2023-04-10 03:24 | disposition home or self-care (01) ==
LOC: LBO 03:23
PROVIDERS: PCP Nurse Practitioner; Visit Provider Nurse Practitioner Women's Health
DX: N91.3 Primary oligomenorrhea (principal)
CPT/HCPCS: 36415; 84402; 84403; 87491; 87591; 84443

== ENCOUNTER 2023-06-20 13:49 | Outpatient (REF) | payer MEDICAID, SELFPAY ==
[2023-06-21 14:17] LABS: GC Result Negative (Negative)
[2023-06-21 14:51] LABS: Chlamydia Result Positive (Negative)
== END 2023-06-20 13:50 | disposition home or self-care (01) ==
LOC: LBN 13:49
PROVIDERS: PCP Nurse Practitioner; Visit Provider Advanced Practice Midwife
DX: Z11.3 Encounter for screening for infections with a predominantly sexual mode of transmission (principal)
CPT/HCPCS: 87491; 87591

== ENCOUNTER 2024-03-05 10:04 | Outpatient (REF) | payer SELFPAY ==
[2024-03-06 11:00] LABS: Chlamydia Result Negative (Negative); GC Result Negative (Negative)
== END 2024-03-05 10:05 | disposition home or self-care (01) ==
LOC: LBN 10:04
PROVIDERS: PCP Nurse Practitioner; Visit Provider Advanced Practice Midwife
DX: Z34.91 Encounter for supervision of normal pregnancy, unspecified, first trimester (principal); Z3A.01 Less than 8 weeks gestation of pregnancy
CPT/HCPCS: 87491; 87591

== ENCOUNTER 2024-03-06 14:37 | Outpatient (CLI) | payer SELFPAY ==
[2024-03-06 12:48] LABS: HCG Quant, Pregnancy 2607 mIU/mL (1-3)
== END 2024-03-06 14:38 | disposition home or self-care (01) ==
LOC: LBO 14:39
PROVIDERS: PCP Nurse Practitioner; Visit Provider Advanced Practice Midwife
DX: Z34.91 Encounter for supervision of normal pregnancy, unspecified, first trimester (principal)
CPT/HCPCS: 36415; 86850; 86900; 86901; 84702

== ENCOUNTER 2024-03-17 11:35 | Emergency (ER) | payer SELFPAY ==
[2024-03-17 11:37] VITALS: BP 132/77; PULSE 106; RESP 16; TEMP 37.5; O2SAT 99
--- NOTE | 2024-03-17 12:09 | DI.US_ITS ---
Exam(s) US OB 1ST TRIMESTER EXAM: US OB 1ST TRIMESTER CLINICAL HISTORY: vaginal bleeding. COMPARISON: US US OB 1ST TRIMESTER from 03/12/2024 TECHNIQUE: Transabdominal Transvaginal first trimester obstetrical ultrasound performed. FINDINGS: There is a single living intrauterine gestation. Estimated sonographic age based on crown-rump lengt h is 6 weeks 5 days. The yolk sac was visualized. heart rate is 145 beats per minute. Note is made of a small subchorionic hemorrhage measuring 1.2 x 0.2 x 0.4 cm. Pelvic Measurments Uterus: 8.2 x 4.4 x 5.2 cm Rt Ovary: 2.7 x 1.5 x 2.5 cm Lt Ovary: 2.5 x 2.5 x 1.8 cm IMPRESSION: 1. Single living intrauterine gestation. Estimated sonographic age is 6 weeks 5 days. 2. There is a small 1.2 x 0.2 x 0.4 cm subchorionic hemorrhage. DATA REPOSITORY:
[2024-03-17 12:31] LABS: Abs Immature Grans 0.02 10^3/uL (0.0-0.06); Absolute Basophil Count 0.04 10^3/uL (0.0-0.2); Absolute Eosinophil Count 0.14 10^3/uL (0.0-0.7); Absolute Lymphocyte Count 2.85 10^3/uL (1.2-3.4); Absolute Neutrophil Count 4.41 10^3/uL (1.2-6.7); Basophils % 0.5 %; Eosinophils % 1.8 %; HCT 41.7 % (36.0-46.0); HGB 13.9 g/dL (11.2-15.7); Immature Grans % 0.3 %; Lymphocytes % 35.8 %; MCH 29.6 pg (27.0-33.0); MCHC 33.3 % (32.0-36.0); MCV 89 fL (80-95); MPV 11.2 fL (8.0-11.0); Monocytes % 6.3 %; Neutrophils % 55.3 %; Platelet Count 242 10^3/uL (130-400); RDW 11.6 % (11.7-14.6); RDW-SD 37.1 fL; WBC 7.96 10^3/uL (4.4-10.8)
[2024-03-17 13:18] LABS: Anion Gap 10.5 mmol/L (3-11); BUN 6 mg/dL (7-18); CO2 25.5 mmol/L (21.0-32.0); CREATININE 0.5 mg/dL (0.55-1.02); Chloride 104 mmol/L (98-107); Estimated GFR 135.07 (mL/min/1.73m2); Glucose 68 mg/dL (74-106); HCG Quant, Pregnancy 13803 mIU/mL (1-3); Potassium 3.2 mmol/L (3.5-5.1); Sodium 140 mmol/L (136-145)
[2024-03-17 13:49] VITALS: PULSE 70; RESP 16; O2SAT 99
[2024-03-17] MEDS: Potassium Chloride Liquid 20 MEQ PKT 40 MEQ PO (13:49)
--- NOTE | 2024-03-17 14:55 | W.ED.GENAD ---
Discharge Plan Disposition Patient Disposition: Home Discharge Details Clinical Impression: Threatened miscarriage in early , Subchorionic hemorrhage, Hypokalemia Primary Care Provider: Cherelle Pearson ED Provider: Nilson Sanz Home Meds and New Rx's Prescriptions: No Action PNV,calcium [id number] acid 27 mg iron- 1 mg tablet 1 tab PO DAILY Qty: 90 3RF Rx Instructions: give with food (meal/snack) Discharge Instructions Instructions: Subchorionic Bleeding Additional Instructions: Your beta level (blood hormone level) is rising appropriately Your ultrasound is reassuring today Monitor your bleeding. If you bleed through 2 pads an hour for 2 hours, please return to the emergency department for further evaluation Please follow-up with your TELEVISION SCHEDULE COORDINATOR for continued management of your HPI General Date/Time Provider Initiated Documentation: 03/17/24 11:44. Limitations to Documentation: no limitations. Information obtained by: patient. 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 She reports that last week she started having some spotting. She started having cramping yesterday and today reported send for heavy bleeding. She reports putting in a tampon this morning and that it was soaked with in 4 hours. She reports that she thinks the bleeding and cramping is improving and she has not used another tampon or pad only. Related Data Home Medications ?Medication ?Instructions ?Recorded ?Confirmed vitamin with calcium 1 tab PO DAILY #90 tabs 03/05/24 03/17/24 no.72-iron 27 mg-folic acid 1 mg tablet Previous Rx's ?Medication ?Instructions ?Recorded vitamin with calcium 1 tab PO DAILY #90 tabs 03/05/24 no.72-iron 27 mg-folic acid 1 mg tablet Allergies Allergy/AdvReac Type Severity Reaction Status Date / Time rizatriptan benzoate (From AdvReac Mild MEDICATION Verified 03/17/24 11:40 Maxalt) MADE PT'S NECK HURT. General Stated Complaint: TELEVISION SCHEDULE COORDINATOR ASHLEY: 3 Exam Narrative Exam Narrative: Review of Systems: All systems reviewed & are unremarkable except as noted in HPI and below Well-developed, no acute distress NCAT RRR No hypotension Unlabored respiratory effort Nondistended abdomen , soft non tender Course Vital Signs Vital signs: Vital Signs Temperature 37.5 C 03/17/24 11:37 Pulse 106 H 03/17/24 11:37 Respiratory Rate 16 03/17/24 11:37 Blood Pressure 132/77 03/17/24 11:37 Pulse Oximetry 99 03/17/24 11:37 Temperature 37.5 C 03/17/24 11:37 Temperature Source Core 03/17/24 11:37 Pulse 70 03/17/24 13:49 Respiratory Rate 16 03/17/24 13:49 Respiratory Effort Normal, Non-Labored 03/17/24 11:39 Blood Pressure 132/77 03/17/24 11:37 Blood Pressure Position Sitting 03/17/24 11:37 Pulse Oximetry 99 03/17/24 13:49 Oxygen Delivery Method Room Air 03/17/24 11:37 Oxygen Flow Rate 0 03/17/24 11:37 Pain Level 3 03/17/24 13:49 Lab/Test Results Lab/Test Results: Laboratory Tests Range/Units 03/17/24 12:24 WBC (4.4-10.8) 10^3/uL 7.96 RBC (3.93-5.22) 10^6/uL 4.70 Hgb (11.2-15.7) g/dL 13.9 Hct (36.0-46.0) % 41.7 MCV (80-95) fL 89 MCH (27.0-33.0) pg 29.6 MCHC (32.0-36.0) % 33.3 RDW (11.7-14.6) % 11.6 L Plt Count (130-400) 10^3/uL 242 MPV (8.0-11.0) fL 11.2 H Immature Gran % % 0.3 Neutrophils % % 55.3 Lymphocytes % % 35.8 Monocytes % % 6.3 Eosinophils % % 1.8 Basophils % % 0.5 Nucleated RBC % (0.0-0.3) % 0.0 Absolute Neutrophils (1.2-6.7) 10^3/uL 4.41 Absolute Lymphocytes (1.2-3.4) 10^3/uL 2.85 Absolute Monocytes (0.1-0.8) 10^3/uL 0.50 Absolute Eosinophils (0.0-0.7) 10^3/uL 0.14 Absolute Basophils (0.0-0.2) 10^3/uL 0.04 Sodium (136-145) mmol/L 140 Potassium (3.5-5.1) mmol/L 3.2 L Chloride (98-107) mmol/L 104 Carbon Dioxide (21.0-32.0) mmol/L 25.5 Anion Gap (3-11) mmol/L 10.5 BUN (7-18) mg/dL 6 L Creatinine (0.55-1.02) mg/dL 0.5 L Est GFR (CKD-EPI 2020) (mL/min/1.73m2) 135.07 Glucose (74-106) mg/dL 68 L Calcium (8.5-10.1) mg/dL 9.0 Beta HCG, Quant (1-3) mIU/mL 47112 H POC- Test(urine) Positive Medical Decision Making Urgent evaluation of vaginal bleeding in early . The patient has seen OB regarding this and was noted on bedside ultrasound to have an intrauterine though no heart rate had been identified at that time. She is reporting some bleeding and cramping that does seem to be improving since onset. The patient is not reporting any severe pain. She is not hypotensive and given her prior ultrasound, I doubt have ectopic that is ruptured and causing her symptoms. My were concerning suspicions include threatened AB, spontaneous AB, missed AB. The patient was sent for an ultrasound which did not demonstrate an intrauterine with noted heart rate and active movements. A subchorionic hemorrhage was also noted. The patient reports that she has not had any additional bleeding since she has been in the emergency department. She was advised to monitor symptoms, stop using tampons, return precautions regarding the amount of bleeding were provided to the patient and she should follow closely with OB for ongoing management of this . Quality:SDOH Health Related Social Needs: No Data to Display PFSH All Active Problems Hypokalemia (Acute) Subchorionic hemorrhage (Acute) Threatened miscarriage in early (Acute) (Acute) Encounter for screening for bacterial sexually transmitted infection (Acute) Postural orthostatic tachycardia syndrome (Chronic) Right Lower Quadrant Abdominal Pain (Acute ~07/2022) Anxiety (Chronic) did not tolerate prozac - mood swings and panic attacks Migraine headache without aura (Chronic) Medical History Chlamydia infection (~07/2022) 09/06 and 04/06 Infectious mononucleosis Surgical History S/P foot surgery Excision of accessory navicular bone S/P tonsillectomy Family History Mother Cervical cancer Migraine Father No problems noted. Sister Substance abuse Sister No problems noted. Brother No problems noted. Brother No problems noted. Brother No problems noted. Paternal Grandfather No problems noted. Paternal Grandmother COPD (chronic obstructive pulmonary disease) Maternal Grandfather Colon cancer Maternal Grandmother Brain cancer Lung cancer Social History Smoking/Tobacco Use Status: Former Tobacco Use Tobacco: How many years used: 5 Smokeless tobacco user: other Quit status: has quit before Second Hand Exposure: Yes Counseling given: provider counseling Smoking risk assessment performed?: Yes Alcohol Intake: current Alcohol Intake frequency: holidays/special occasions only Alcohol type: beer Drug use: Never Substance use type: does not use Caregiver/Support person: No Household members: significant other and other Details: [facility] Housing: house Number of Children: 0 Education Level: high school Do you need help understanding health information?: Rarely current occupation: [employer] in [employer] Pets and animals: Yes Pets and animals: dog(s) Sexually active: Yes Do you think of yourself as: straight/heterosexual Current gender identity: female What is your relationship status?: living with partner How often do you talk on the phone with friends or family?: three or more times per week How often do you get together with friends or relatives?: three or more times per week How often do you attend congregation or jewish services?: decline to answer Do you belong to any clubs or organized social groups?: no Panel score (0-1 are the most socially isolated patients): 2 What type of physical activity do you participate in: regular exercise Frequency: 5-6 times per week Lizet/Restorationism: No preference Agree to transfusion: No Seatbelt use: always Helmet use: Yes Helmet use: always Drive intox or ride w/intox auto parts delivery driver: No Working smoke detector in home: Yes Fire extinguisher in home: Yes Carbon monox detector in home: Yes Do you feel safe at home: Yes Do you feel safe in your relationship?: Yes Female Reproductive History Menstrual control method: progesterone injection History History 1 Para 0 Hx # Term Pregnancies 0 Multiple births 0 Hx # Pregnancies 0 Ectopic pregnancies 0 AB induced 0 Hx Number of Living Children 0 AB spontaneous 0
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
== END 2024-03-17 13:49 | disposition home or self-care (01) ==
PROVIDERS: Emergency Provider Emergency Medicine; PCP Nurse Practitioner
DX: O03.9 Complete or unspecified spontaneous abortion without complication (principal)
CPT/HCPCS: 36415; 80048; 81025; 99284; 76801; 84702; 85025; 99283

== ENCOUNTER 2024-03-25 03:33 | Outpatient (CLI) | payer SELFPAY ==
[2024-03-25 12:28] LABS: Abs Immature Grans 0.01 10^3/uL (0.0-0.06); Absolute Basophil Count 0.02 10^3/uL (0.0-0.2); Absolute Lymphocyte Count 2.37 10^3/uL (1.2-3.4); Absolute Neutrophil Count 3.69 10^3/uL (1.2-6.7); Basophils % 0.3 %; Eosinophils % 1.5 %; HCT 37.6 % (36.0-46.0); HGB 12.7 g/dL (11.2-15.7); Immature Grans % 0.2 %; MCH 29.5 pg (27.0-33.0); MCHC 33.8 % (32.0-36.0); MCV 87 fL (80-95); MPV 10.5 fL (8.0-11.0); Monocytes % 6.1 %; Neutrophils % 55.9 %; Platelet Count 212 10^3/uL (130-400); RBC 4.31 10^6/uL (3.93-5.22); RDW 11.9 % (11.7-14.6); RDW-SD 37.9 fL; WBC 6.59 10^3/uL (4.4-10.8)
[2024-03-25 12:49] LABS: HCG Quant, Pregnancy 106 mIU/mL (1-3)
== END 2024-03-25 03:34 | disposition home or self-care (01) ==
LOC: LBO 03:34
PROVIDERS: Advanced Practice Midwife; PCP Nurse Practitioner; Visit Provider Advanced Practice Midwife
DX: O03.9 Complete or unspecified spontaneous abortion without complication (principal)
CPT/HCPCS: 36415; 84702; 85025

== ENCOUNTER 2024-05-31 16:51 | Emergency (ER) | payer SELFPAY ==
[2024-05-31 16:54] VITALS: BP 126/86; PULSE 95; RESP 16; TEMP 36.6; O2SAT 100
[2024-05-31 16:56] VITALS: PULSE 94; RESP 16; TEMP 36.6; O2SAT 100
--- NOTE | 2024-05-31 17:10 | ED.GENADUL_ITS ---
Discharge Plan Disposition Patient Disposition: Home Condition: Good Discharge Details Chief Complaint: Headache Clinical Impression: Migraine headache Primary Care Provider: Cherelle Pearson ED Provider: Yohannes Ritter Discharge Instructions Instructions: Headache, Adult ED Additional Instructions: At this time your symptoms have improved. Thankfully there is no clinical evidence to suggest significant concerning etiology. Your symptoms appear consistent with a migraine headache. Please get plenty of rest, drink plenty fluids, take Tylenol and Motrin as needed for pain. If you notice any worsening of your symptoms, or any new symptoms such as vomiting, diarrhea, fever, chills, shortness of breath, chest pain, numbness, weakness, or fainting , please return immediately to the emergency department for reevaluation. Please follow up with your primary care provider as soon as possible for reassessment and reevaluation. As always, it was a pleasure participating in your medical care today. Referrals: Cherelle Paerson, CONTACT LENS TECHNICIAN [Primary Care Provider] - HPI General Date/Time Provider Initiated Documentation: 05/31/24 16:59 . HPI Narrative: This is a pleasant 23-year-old female with a past medical history of migraines, anxiety, POTS syndrome, who presents today for evaluation of headache. Patient states that for the last 48 to 72 hours she has had a mild headache consistent with prior ones. It started in the left side of the orbit and head transitions to the back of the head. She admits to seeing mild blurry vision on the left-hand side, and symptoms are worsened with light and loud noise. Symptoms of the eye are not made worse by entering a dark room or pupillary dilatation. She denies any fever or chills. The patient denies any headache red flags of worst headache of life, thunderclap headache, neck pain, fever, chills, concerning family history of polycystic kidney disease, Marfan syndrome, Randall-Danlos syndrome, abdominal aortic aneurysm, aortic dissection, or intracranial aneurysm. Patient has had an MRI of the brain before which she states is negative. Related Data Allergies Allergy/AdvReac Type Severity Reaction Status Date / Time rizatriptan benzoate (From AdvReac Mild MEDICATION Verified 05/31/24 16:54 Maxalt) MADE PT'S NECK HURT. General Stated Complaint: Headache ASHLEY: 4 Review of Systems All systems reviewed & are unremarkable except as noted in HPI and below Exam Narrative Exam Narrative: 1.Const: Well-nourished, Well-developed, appearing stated age 2.Eyes: PERRL, no conjunctival injection, and symmetrical lids. 3.ENT: Atraumatic external nose and ears. Moist MM. Neck: Symmetric, trachea midline, No thyromegaly. Patient demonstrates good movement of cervical neck. There is no nuchal rigidity, no nuchal tenderness. Patient is able to flex the neck without any difficulty or significant pain. Negative Kernig's and Brudzinski sign. 4.CVS: +S1/S2, Peripheral pulses 2+ and equal in all extremities. Brisk capillary refill in all extremities. 5.RESP: Unlabored respiratory effort. Clear to auscultation bilaterally. No wheezes rales or rhonchi 6.GI: Soft, Nontender/Nondistended, No hepatosplenomegaly. No guarding or rebound. 7.MSK: Normocephalic/Atraumatic, Extremities w/o deformity or ttp No cyanosis or clubbing, Normal movement of all extremities 8.Skin: Warm, Dry. No rashes or lesions. 9.Neuro: para operator II-XII grossly intact. Sensation grossly intact, no focal neurologic deficits. All 6 cardinal planes of vision are fully intact. No evidence of rotatory or vertical nystagmus. The patient demonstrated a normal dhkipu-pdzd-bksbgs, good dexterity. There was no evidence of dysdiadochokinesia. Patient was able to ambulate without difficulty. There was no wide-based gait. Romberg testing was normal. Viyg-dk-dnco testing was normal. Sensation was intact bilaterally as well as muscle strength bilaterally for all extremities. Patient was able to verbalize butter cup with no slurring, or miss pronunciation. 10.Psych: (AAO) x3. Appropriate mood and affect Course Vital Signs Vital signs: Vital Signs Temperature 36.6 C 05/31/24 16:54 Pulse 95 H 05/31/24 16:54 Respiratory Rate 16 05/31/24 16:54 Blood Pressure 126/86 05/31/24 16:54 Pulse Oximetry 100 05/31/24 16:54 Temperature 36.6 C 05/31/24 16:56 Temperature Source Oral 05/31/24 16:56 Pulse 94 H 05/31/24 16:56 Respiratory Rate 16 05/31/24 16:56 Respiratory Effort Normal, Non-Labored 05/31/24 16:56 Blood Pressure 126/86 05/31/24 16:54 Blood Pressure Position Sitting 05/31/24 16:54 Pulse Oximetry 100 05/31/24 16:56 Oxygen Delivery Method Room Air 05/31/24 16:56 Oxygen Flow Rate 0 05/31/24 16:54 Pain Level 8 05/31/24 16:56 Medical Decision Making This is a pleasant 23-year-old female with a past medical history of migraines, anxiety, POTS syndrome, who presents today for evaluation of headache. Patient states that for the last 48 to 72 hours she has had a mild headache consistent with prior ones. It started in the left side of the orbit and head transitions to the back of the head. She admits to seeing mild blurry vision on the left-hand side, and symptoms are worsened with light and loud nois e. Symptoms of the eye are not made worse by entering a dark room or pupillary dilatation. She denies any fever or chills. The patient denies any headache red flags of worst headache of life, thunderclap headache, neck pain, fever, chills, concerning family history of polycystic kidney disease, Marfan syndrome, Randall-Danlos syndrome, abdominal aortic aneurysm, aortic dissection, or intracranial aneurysm. Patient has had an MRI of the brain before which she states is negative. Physical exam demonstrates well-appearing female, no neck pain or neck stiffness to suggest meningitis. Symptoms and history are inconsistent with acute intracranial aneurysm or rupture. Symptoms appear clinically consistent with mild migraine. Will give Compazine, Benadryl, Solu-Medrol, give oral fluids, Tylenol and Toradol. Symptoms inconsistent with dural venous sinus thrombosis that she has no control or estrogen use or history of blood clot. 6:30 PM On reassessment patient has near complete resolution of her headache. She feels well and feels comfortable going home. On repeat exam there is no focal neurologic deficits. No nuchal rigidity or managements. Patient feels like her symptoms have completely resolved. Patient stable for discharge. Symptoms clinically consistent at this time with migraine. Discussed red flags for which to return. I have extensively reviewed the treatment plan and discharge instructions with the patient. I have addressed all patient concerns at this time. The patient was made aware of what symptoms to monitor for that would warrant a return to the emergency department. Discussed the plan with the patient, they demonstrate verbal understanding and agreement with our assessment and plan at this time. The documentation in this chart was dictated using [employer] dictation software. Please excuse any dictation errors. Quality:SDOH Health Related Social Needs: No Data to Display PFSH All Active Problems (Updated 05/31/24 @ 18:31 by Yohannes Ritter DO) Migraine headache (Chronic) Complete miscarriage (Acute) Postural orthostatic tachycardia syndrome (Chronic) Anxiety (Chronic) did not tolerate prozac - mood swings and panic attacks Migraine headache without aura (Chronic) Medical History Right Lower Quadrant Abdominal Pain (~07/2022) Encounter for screening for bacterial sexually transmitted infection Threatened miscarriage in early Chlamydia infection (~07/2022) 09/06 and 04/06 Infectious mononucleosis Surgical History S/P foot surgery Excision of accessory navicular bone S/P tonsillectomy Family History Mother Cervical cancer Migraine Father No problems noted. Sister Substance abuse Sister No problems noted. Brother No problems noted. Brother No problems noted. Brother No problems noted. Paternal Grandfather No problems noted. Paternal Grandmother COPD (chronic obstructive pulmonary disease) Maternal Grandfather Colon cancer Maternal Grandmother Brain cancer Lung cancer Social History Smoking/Tobacco Use Status: Former Tobacco Use Tobacco: How many years used: 5 Smokeless tobacco user: other Quit status: has quit before Second Hand Exposure: Yes Counseling given: provider counseling Smoking risk assessment performed?: Yes Alcohol Intake: current Alcohol Intake frequency: holidays/special occasions o nly Alcohol type: beer Drug use: Never Substance use type: does not use Caregiver/Support person: No Household members: significant other and other Details: [facility] Housing: house Number of Children: 0 Education Level: high school Do you need help understanding health information?: Rarely current occupation: [employer] in [employer] Pets and animals: Yes Pets and animals: dog(s) Sexually active: Yes Do you think of yourself as: straight/heterosexual Current gender identity: female What is your relationship status?: living with partner How often do you talk on the phone with friends or family?: three or more times per week How often do you get together with friends or relatives?: three or more times per week How often do you attend alevism or sabianist services?: decline to answer Do you belong to any clubs or organized social groups?: no Panel score (0-1 are the most socially isolated patients): 2 What type of physical activity do you participate in: regular exercise Frequency: 5-6 times per week Lizet/Taoist: No preference Agree to transfusion: No Seatbelt use: always Helmet use: Yes Helmet use: always Drive intox or ride w/intox class c truck driver: No Working smoke detector in home: Yes Fire extinguisher in home: Yes Carbon monox detector in home: Yes Do you feel safe at home: Yes Do you feel safe in your relationship?: Yes Female Reproductive History Menstrual control method: progesterone injection History History 1 Para 0 Hx # Term Pregnancies 0 Multiple births 0 Hx # Pregnancies 0 Ectopic pregnancies 0 AB induced 0 Hx Number of Living Children 0 AB spontaneous 0
[2024-05-31] MEDS: Prochlorperazine 10 MG/2 ML VIAL IVP (17:25)
[2024-05-31] MEDS: diphenhydrAMINE 50 MG/ML VIAL IVP (17:25)
[2024-05-31] MEDS: Ketorolac 15 MG/ML VIAL IVP (17:26)
[2024-05-31] MEDS: methylPREDNISolone SUCC 125 MG VIAL IVP (17:26)
[2024-05-31] MEDS: Acetaminophen 500 MG TAB 1000 MG PO (17:27)
[2024-05-31 18:41] VITALS: BP 92/55; PULSE 59; RESP 15; O2SAT 99
== END 2024-05-31 18:45 | disposition home or self-care (01) ==
LOC: ER 18:51
PROVIDERS: Emergency Provider Student in an Organized Health Care Education/Training Program; PCP Nurse Practitioner
DX: G43.909 Migraine, unspecified, not intractable, without status migrainosus (principal); Z87.891 Personal history of nicotine dependence
CPT/HCPCS: 96374; 96375; 99284; 99283; J0780; J1200; J1885; J2919

== ENCOUNTER 2025-04-23 12:55 | Emergency (ER) | payer SELFPAY ==
[2025-04-23] VITALS (20 sets, daily range): BP systolic 96–123; BP diastolic 47–74; PULSE 74–113; RESP 16; TEMP 36.9; O2SAT 97–100
[2025-04-23 13:39] LABS: Glucose Negative (Negative)
--- NOTE | 2025-04-23 13:43 | DI.US_ITS ---
Exam(s) US PELVIS TRANSVAGINAL EXAM: US PELVIS TRANSVAGINAL CLINICAL HISTORY: pain, r/o torsion TECHNIQUE: Ultrasound of the pelvis was performed both transabdominal and transvaginal. COMPARISON: US US OB 1ST TRIMESTER from 03/18/2024 FINDINGS: UTERUS: Anteverted Measures 7 cm length x 2.8 cm AP x 3.9 cm wide. There are no uterine fibroids. Endometrial thickness measures 8 mm. There is a small amount of hyperechoic fluid in the endometrial cavity. CERVIX: There are no obvious nabothian cysts. RIGHT OVARY: Measures 3.2 x 2.4 x 2.9 cm In addition to small sub cm follicles there is an involuting complex cyst which measures 1.2 x 0.8 cm. Right ovary demonstrates normal blood flow. LEFT OVARY: Measures 2.1 x 1.7 x 2 point a cm Contains multiple sub cm follicular cysts. No hemorrhagic cysts nor solid lesions. Left ovary demonstrates normal blood flow CUL-DE-SAC: No free fluid evident. IMPRESSION: 1. No evidence of ovarian torsion, as per request the ovaries exhibit normal size and contains sub cm follicles and also noted is an involuting hemorrhagic cyst in the right ovary measuring 12 x 8 mm. 2. There is also no free fluid in the adnexal regions and cul-de-sac. 3. There appears to be some complex fluid in the endometrial cavity of the uterus. DATA REPOSITORY:
[2025-04-23 13:47] LABS: C & S Indicated? No; RBC Negative HPF (0-2); WBC Negative HPF (0-5)
[2025-04-23 13:51] LABS: Abs Immature Grans 0.04 10^3/uL (0.0-0.06); HCT 41.3 % (36.0-46.0); HGB 14.1 g/dL (11.2-15.7); Immature Grans % 0.3 %; MCH 29.7 pg (27.0-33.0); MCHC 34.1 % (32.0-36.0); MCV 87 fL (80-95); MPV 11.6 fL (8.0-11.0); Platelet Count 258 10^3/uL (130-400); RBC 4.74 10^6/uL (3.93-5.22); RDW 11.7 % (11.7-14.6); RDW-SD 37.2 fL; WBC 13.99 10^3/uL (4.4-10.8)
[2025-04-23] MEDS: ACETAMINOPHEN 1,000 MG/100 ML BAG 400 MG IVPB (13:52)
[2025-04-23 14:11] LABS: ALT 14 U/L (14-59); AST 8 U/L (15-37); Albumin 4.4 g/dL (3.4-5.0); Alkaline Phosphatase 80 U/L (46-116); Anion Gap 10.7 mmol/L (3-11); BUN 11 mg/dL (7-18); Bilirubin, Total 0.7 mg/dL (0.2-1.0); CO2 27.3 mmol/L (21.0-32.0); Calcium 8.9 mg/dL (8.5-10.1); Chloride 103 mmol/L (98-107); Estimated GFR 128.46 (mL/min/1.73m2); Glucose 85 mg/dL (74-106); Lipase 20 U/L (<78); Potassium 3.5 mmol/L (3.5-5.1); Sodium 141 mmol/L (136-145); Total Protein 8.1 g/dL (6.4-8.2)
--- NOTE | 2025-04-23 14:38 | ED.GENADUL_ITS ---
Discharge Plan Discharge Details Chief Complaint: Abd Prob Primary Care Provider: Cherelle Pearson ED Provider: Chaparro Guerrero Home Meds and New Rx's Prescriptions: No Action No Known Home Meds HPI General Mode of arrival: ambulatory . Date/Time Provider Initiated Documentation: 04/23/25 13:43 . Limitations to Documentation: no limitations . Information obtained by: patient . HPI Narrative: HISTORY OF PRESENT ILLNESS This is a 24-year-old female with a history of ovarian cyst presenting with abdominal pain. The patient reports experiencing lower -abdominal pain that began on 04/21/2025. The pain, described as dull and aching when she is seated, intensifies to a sharp sensation upon standing or moving. The discomfort persists throughout the day and night. She has not experienced any associated nausea or vomiting but mentions feeling slightly feverish. She reports no urinary symptoms such as dysuria or increased frequency. However, she notes that urination exacerbates her abdominal pain. She reports no rashes or abnormal discharge. She does not recall experiencing similar pain in the past. She is sexually active and does not use control. She had her last menstrual period two weeks ago, which was normal. She reports no back pain. Related Data Home Medications ?Medication ?Instructions ?Recorded ?Confirmed Unknown [No Known Home Meds] 04/23/25 1 Allergies Allergy/AdvReac Type Severity Reaction Status Date / Time rizatriptan benzoate (From AdvReac Mild MEDICATION Verified 04/23/25 13:05 Maxalt) MADE PT'S NECK HURT. General Stated Complaint: Abd Prob ASHLEY: 3 Review of Systems Constitutional Constitutional: Reports as per HPI Gastrointestinal Gastrointestinal: Reports as per HPI Genitourinary Genitourinary: Reports as per HPI, Denies genital lesions, Denies vaginal discharge and Denies vaginal odor Exam Const General: cooperative and no acute distress HENMT Mouth: moist mucous membranes Eyes Conjunctivae: normal conjunctivae Sclera: normal sclerae Resp Auscultation: clear to auscultation bilaterally, no rales, no rhonchi and no wheezes Cardio Rate: tachycardic Rhythm: regular rhythm GI Palpation: soft, not firm, no guarding, no masses, not rigid and tender in the RLQ and suprapubicly Skin General skin exam: no rashes or lesions noted Neuro General: patient alert, patient awake, patient oriented x3 and tone normal Extrem General: no edema Psych Appearance: grossly normal Mental Status: mental status grossly normal Course Vital Signs Vital signs: Vital Signs Temperature 36.9 C 04/23/25 13:01 Pulse 113 H 04/23/25 13:01 Respiratory Rate 16 04/23/25 13:01 Blood Pressure 123/74 04/23/25 13:01 Pulse Oximetry 98 04/23/25 13:01 Temperature 36.9 C 04/23/25 13:05 Pulse 90 04/23/25 14:31 Respiratory Rate 16 04/23/25 13:05 Blood Pressure 105/59 L 04/23/25 14:31 Blood Pressure Mean 73 04/23/25 14:31 Pulse Oximetry 99 04/23/25 14:31 Pain Level 3 04/23/25 13:29 Lab/Test Results Lab/Test Results: Laboratory Tests Range/Units 04/23/25 04/23/25 13:22 13:24 WBC (4.4-10.8) 10^3/uL 13.99 H RBC (3.93-5.22) 10^6/uL 4.74 Hgb (11.2-15.7) g/dL 14.1 Hct (36.0-46.0) % 41.3 MCV (80-95) fL 87 MCH (27.0-33.0) pg 29.7 MCHC (32.0-36.0) % 34.1 RDW (11.7-14.6) % 11.7 Plt Count (130-400) 10^3/uL 258 MPV (8.0-11.0) fL 11.6 H Immature Gran % % 0.3 Neutrophils % % 76.0 Lymphocytes % % 15.8 Monocytes % % 7.0 Eosinophils % % 0.6 Basophils % % 0.3 Nucleated RBC % (0.0-0.3) % 0.0 Absolute Neutrophils (1.2-6.7) 10^3/uL 10.63 H Absolute Lymphocytes (1.2-3.4) 10^3/uL 2.21 Absolute Monocytes (0.1-0.8) 10^3/uL 0.98 H Absolute Eosinophils (0.0-0.7) 10^3/uL 0.08 Absolute Basophils (0.0-0.2) 10^3/uL 0.04 Sodium (136-145) mmol/L 141 Potassium (3.5-5.1) mmol/L 3.5 Chloride (98-107) mmol/L 103 Carbon Dioxide (21.0-32.0) mmol/L 27.3 Anion Gap (3-11) mmol/L 10.7 BUN (7-18) mg/dL 11 Creatinine (0.55-1.02) mg/dL 0.6 Est GFR (CKD-EPI 2020) (mL/min/1.73m2) 128.46 Glucose (74-106) mg/dL 85 Calcium (8.5-10.1) mg/dL 8.9 Total Bilirubin (0.2-1.0) mg/dL 0.7 AST (15-37) U/L 8 L ALT (14-59) U/L 14 Alkaline Phosphatase (46-116) U/L 80 Total Protein (6.4-8.2) g/dL 8.1 Albumin (3.4-5.0) g/dL 4.4 Lipase (<78) U/L 20 Urine Color (Yellow) Yellow Urine Clarity (Clear) Sl Cloudy Urine pH (5-8) 8.0 Ur Specific [place] (1.005-1.025) 1.025 Urine Protein (Neg-Trace) mg/dL Negative Urine Ketones (Negative) mg/dL Trace H Urine Blood (Negative) Trace-intact H Urine Nitrite (Negative) Negative Urine Bilirubin (Negative) Negative Urine Urobilinogen (Up to 0.2) mg/dL 1.0 H Ur Leukocyte Esterase (Negative) Negative Urine RBC (0-2) HPF Negative Urine WBC (0-5) HPF Negative Ur Epithelial Cells (Negative) HPF Many Urine Crystals (Negative) HPF Negative Urine Bacteria (Negative) HPF Few Urine Casts (Negative) LPF Negative Urine Mucus (Negative) Moderate Ur Culture Indicated? No Urine Glucose (Negative) mg/dL Negative POC- Test(urine) Negative Medical Decision Making ASSESSMENT AND PLAN Initial Assessment: 24-year-old female with history of ovarian cyst, here with suprapubic and right lower abdominal pain that started 2 days ago and has persisted. Patient has tenderness in her lower abdomen on the right and suprapubic area. No rebound tenderness. Negative Rovsing's. Differential Diagnosis: - Ovarian cyst - Ovarian torsion - Appendicitis - Urinary tract infection ED Course: - Pelvic Ultrasound ordered to assess for ovarian torsion - Tylenol administered intravenously - Labs reviewed: Urinalysis is not consistent with UTI. Leukocytosis noted. - Ultrasound was interpreted by radiology: Adequate perfusion bilateral ovaries. 1. No evidence of ovarian torsion, as per request the ovaries exhibit normal size and contains sub cm follicles and also noted is an involuting hemorrhagic cyst in the right ovary measuring 12 x 8 mm. 2. There is also no free fluid in the adnexal regions and cul-de-sac. 3. There appears to be some complex fluid in the endometrial cavity of the uterus. - Plan for CT of the abdomen pelvis to assess for acute intra-abdominal surgical process including appendicitis. Care to be signed out to Dr. Jones with plan for follow-up on CT imaging and reassessment for disposition. This document was written with the assistance of MONSE Sapp. The patient consented to its use. Lab Data Lab results reviewed: Yes I reviewed the patient's lab results. Labs: Laboratory Tests Range/Units 04/23/25 04/23/25 13:22 13:24 WBC (4.4-10.8) 10^3/uL 13.99 H RBC (3.93-5.22) 10^6/uL 4.74 Hgb (11.2-15.7) g/dL 14.1 Hct (36.0-46.0) % 41.3 MCV (80-95) fL 87 MCH (27.0-33.0) pg 29.7 MCHC (32.0-36.0) % 34.1 RDW (11.7-14.6) % 11.7 Plt Count (130-400) 10^3/uL 258 MPV (8.0-11.0) fL 11.6 H Immature Gran % % 0.3 Neutrophils % % 76.0 Lymphocytes % % 15.8 Monocytes % % 7.0 Eosinophils % % 0.6 Basophils % % 0.3 Nucleated RBC % (0.0-0.3) % 0.0 Absolute Neutrophils (1.2-6.7) 10^3/uL 10.63 H Absolute Lymphocytes (1.2-3.4) 10^3/uL 2.21 Absolute Monocytes (0.1-0.8) 10^3/uL 0.98 H Absolute Eosinophils (0.0-0.7) 10^3/uL 0.08 Absolute Basophils (0.0-0.2) 10^3/uL 0.04 Sodium (136-145) mmol/L 141 Potassium (3.5-5.1) mmol/L 3.5 Chloride (98-107) mmol/L 103 Carbon Dioxide (21.0-32.0) mmol/L 27.3 Anion Gap (3-11) mmol/L 10.7 BUN (7-18) mg/dL 11 Creatinine (0.55-1.02) mg/dL 0.6 Est GFR (CKD-EPI 2020) (mL/min/1.73m2) 128.46 Glucose (74-106) mg/dL 85 Calcium (8.5-10.1) mg/dL 8.9 Total Bilirubin (0.2-1.0) mg/dL 0.7 AST (15-37) U/L 8 L ALT (14-59) U/L 14 Alkaline Phosphatase (46-116) U/L 80 Total Protein (6.4-8.2) g/dL 8.1 Albumin (3.4-5.0) g/dL 4.4 Lipase (<78) U/L 20 Urine Color (Yellow) Yellow Urine Clarity (Clear) Sl Cloudy Urine pH (5-8) 8.0 Ur Specific [place] (1.005-1.025) 1.025 Urine Protein (Neg-Trace) mg/dL Negative Urine Ketones (Negative) mg/dL Trace H Urine Blood (Negative) Trace-intact H Urine Nitrite (Negative) Negative Urine Bilirubin (Negative) Negative Urine Urobilinogen (Up to 0.2) mg/dL 1.0 H Ur Leukocyte Esterase (Negative) Negative Urine RBC (0-2) HPF Negative Urine WBC (0-5) HPF Negative Ur Epithelial Cells (Negative) HPF Many Urine Crystals (Negative) HPF Negative Urine Bacteria (Negative) HPF Few Urine Casts (Negative) LPF Negative Urine Mucus (Negative) Moderate Ur Culture Indicated? No Urine Glucose (Negative) mg/dL Negative PFSH All Active Problems Complete miscarriage (Acute) Postural orthostatic tachycardia syndrome (Chronic) Anxiety (Chronic) did not tolerate prozac - mood swings and panic attacks Migraine headache without aura (Chronic) Medical History Right Lower Quadrant Abdominal Pain (~07/2022) Encounter for screening for bacterial sexually transmitted infection Threatened miscarriage in early Chlamydia infection (~07/2022) 09/06 and 04/06 Infectious mononucleosis Surgical History S/P foot surgery Excision of accessory navicular bone S/P tonsillectomy Family History Mother Cervical cancer Migraine Father No problems noted. Sister Substance abuse Sister No problems noted. Brother No problems noted. Brother No problems noted. Brother No problems noted. Paternal Grandfather No problems noted. Paternal Grandmother COPD (chronic obstructive pulmonary disease) Maternal Grandfather Colon cancer Maternal Grandmother Brain cancer Lung cancer Social History Smoking/Tobacco Use Status: Former Tobacco Use Tobacco: How many years used: 5 Smokeless tobacco user: other Quit status: has quit before Second Hand Exposure: Yes Counseling given: provider counseling Smoking risk assessment performed?: Yes Alcohol Intake: current Alcohol Intake frequency: holidays/special occasions only Alcohol type: beer Drug use: Never Substance use type: does not use Caregiver/Support person: No Household members: significant other and other Details: [facility] Housing: house Number of Children: 0 Education Level: high school Do you need help understanding health information?: Rarely current occupation: [employer] in [employer]. Pets and animals: Yes Pets and animals: dog(s) Sexually active: Yes Do you think of yourself as: straight/heterosexual Current gender identity: female What is your relationship status?: living with partner How often do you talk on the phone with friends or family?: three or more times per week How often do you get together with friends or relatives?: three or more times per week How often do you attend mu-ism or taoist services?: decline to answer Do you belong to any clubs or organized social groups?: no Panel score (0-1 are the most socially isolated patients): 2 What type of physical activity do you participate in: regular exercise Frequency: 5-6 times per week Lizet/Restorationist: No preference Agree to transfusion: No Seatbelt use: always Helmet use: Yes Helmet use: always Drive intox or ride w/intox bobcat driver/labor: No Working smoke detector in home: Yes Fire extinguisher in home: Yes Carbon monox detector in home: Yes Do you feel safe at home: Yes Do you feel safe in your relationship?: Yes Female Reproductive History Menstrual control method: progesterone injection History History 1 Para 0 Hx # Term Pregnancies 0 Multiple births 0 Hx # Pregnancies 0 Ectopic pregnancies 0 AB induced 0 Hx Number of Living Children 0 AB spontaneous 0
--- NOTE | 2025-04-23 15:00 | DI.CT_ITS ---
Exam(s) CT ABDOMEN PELVIS W EXAM: CT ABDOMEN PELVIS W CLINICAL HISTORY: rlq and suprpubic abd pain. TECHNIQUE: Imaging Protocol: Axial computed tomography images with coronal and sagittal reformatted images were created and reviewed CONTRAST MATERIAL: Intravenous: Omnipaque-350 75cc Oral: None COMPARISON: CT CT ABDOMEN PELVIS W from 08/10/2022 FINDINGS: VISUALIZED LUNG BASES: No nodules nor pleural effusions evident. ABDOMEN: There is no ascites. LIVER: There are no focal hepatic lesions evident. No dilated intrahepatic ducts. GALLBLADDER/BILIARY: No obvious gallbladder pathology. CBD is not dilated. PANCREAS: No evidence of pancreatic mass nor dilatation of the pancreatic duct. SPLEEN: Spleen is not enlarged. No obvious intrasplenic lesions. Splenic and portal veins are patent. ADRENALS: There are no significant adrenal masses. KIDNEYS:No cysts evident. No solid renal masses. No calculi nor hydronephrosis.. ABDOMINAL AORTA: Abdominal aorta is not enlarged. LYMPH NODES:There is no retroperitoneal nor paraaortic adenopathy. ABDOMINAL WALL: No evidence of significant anterior abdominal wall nor inguinal hernia. GI: There is no evidence of bowel obstruction, free air, nor abscess. PELVIS: GI: No evidence of appendicitis.No evidence of sigmoid diverticulitis. LYMPH NODES: There is no intrapelvic nor inguinal adenopathy. REPRODUCTIVE: Uterus size and appearance appears age-appropriate follicular cysts are noted in the ovaries. There is a peripherally enhancing corpus luteal cyst in the right ovary measuring 1.6 x 1.0 cm. No surrounding fluid in the right adnexa nor in the cul-de-sac. URINARY BLADDER: No calculi nor obvious masses evident OSSEOUS: Benign bone island in the upper left side of the sacrum is unchanged. No lytic osseous lesions evident. IMPRESSION: 1. No significant acute findings in the abdomen and pelvis. 2. No evidence of acute appendicitis 3. There is a 16 x 10 millimeter peripherally enhancing corpus luteal cyst in the right ovary. No surrounding fluid in the right adnexal and the pelvis regions. Report called by myself to ER provider 04/23/2025 4:45 p.m. RADIATION DOSE DELIVERED: 354.8mGy.cm Total DLP DATA REPOSITORY: All CT scans at this facility are submitted to the National Radiology Data Registry (NRDR) Dose Index Registry (DIR) with the [employer] ([employer]). RADIATION OPTIMIZATION: All CT scans at this facility use at least one of these dose optimization techniques: automated exposure control; mA and/or kV adjustment per patient size (includes targeted exams where dose is matched to clinical indication); or iterative reconstruction.
[2025-04-23] MEDS: Omnipaque 350 MG/ML 100 ML BTL IJ (16:05)
[2025-04-23] MEDS: Normal Saline - Diluent 50 ML VIAL IJ (16:05)
[2025-04-23] MEDS: Normal Saline Flush 10 ML SYR IVP (16:05)
--- NOTE | 2025-04-23 17:15 | ED.PROG_ITS ---
Date of service: 04/23/25 Time of Service: 17:15 Medical Decision Making Patient signed out to me pending CT which shows no emergent findings, there is a small corpus luteum cyst which is unclear if this is actually cause of her pain. She is feeling better and given reassuring workup I feel she is stable for d ischarge and she will follow-up with [facility], return precautions given Discharge Plan Disposition Patient Disposition: Home Condition: Stable Discharge Details Clinical Impression: Abdominal pain Primary Care Provider: Cherelle Pearson ED Provider: Graham Jones Home Meds and New Rx's Prescriptions: No Action No Known Home Meds Discharge Instructions Additional Instructions: Your ultrasound and CAT scan did not show any emergent findings. You can take 1000 mg of acetaminophen and 600 mg of ibuprofen every 6 hours as needed. If not improving follow-up with [facility] within a week. If you feel significantly more ill or have new symptoms such as persistent vomiting return to the emergency department for reevaluation.
== END 2025-04-23 17:34 | disposition home or self-care (01) ==
PROVIDERS: Student in an Organized Health Care Education/Training Program; Emergency Provider Emergency Medicine; PCP Nurse Practitioner
DX: R10.32 Left lower quadrant pain (principal)
CPT/HCPCS: 36415; 81025; 96374; 00123; 80053; 83690; 99285; 74177; 76830; 76856; 81003; 81015; 85025; 99284; J0131; J3490